=== PATIENT | female | born 1985 | race Caucasian/White ===

== ENCOUNTER 2017-08-18 06:04 | Inpatient (IN) | payer BC ==
[~2017-08-18 06:04] MED LIST: Buffered Lidocaine 0.9% SYRIN* 5 ML/SYR SYRINGE INTRADERM ONE; Sodium Citrate/Citric Acid* 15 ML UDC PO ONE
[2017-08-18] MEDS ORDERED: ceFAZolin 2 GM PREMIX (*) 2 GM/50 ML BAG IVPB ONE (06:37)
[2017-08-18] MEDS ORDERED: Morphine PF AMP (0.5MG/ML)* 5 MG/10 ML AMP ONE (07:55)
[2017-08-18] MEDS ORDERED: OXYTOCIN* 10 UNITS/ML 1 ML VIAL ONE (08:16)
[2017-08-18] MEDS ORDERED: oxyCODONE/Acetamin 5/325 MG* TAB PO PRN (08:36)
[2017-08-18] MEDS ORDERED: Naloxone* 0.4 MG/ML 1 ML VIAL IV PRN (08:36)
[2017-08-18] MEDS ORDERED: Ondansetron INJ* 2 MG/ML VIAL IV PRN (08:36)
[2017-08-18] MEDS ORDERED: DiMENhydriNATE IV* 50 MG/ML VIAL IV PUSH PRN (08:36)
[2017-08-18] MEDS ORDERED: Ketorolac INJ* 30 MG/ML 1 ML VIAL IV PRN (08:36)
[2017-08-18] MEDS ORDERED: fentaNYL* 50 MCG/ML 2 ML VIAL (100 MCG VIAL) IV PRN (08:38)
[2017-08-18] MEDS ORDERED: Acetaminophen TAB* 325 MG PO PRN (09:12)
[2017-08-18] MEDS ORDERED: Zolpidem TAB* 5 MG PO PRN (09:12)
[2017-08-18] MEDS ORDERED: Witch Hazel PAD* JAR TOPICAL PRN (09:12)
[2017-08-18] MEDS ORDERED: Dibucaine 1% 28.35 GM TUBE PR PRN (09:12)
[2017-08-18] MEDS ORDERED: Glycerin ADULT SUPP PR PRN (09:12)
--- NOTE | 2017-08-18 09:43 | OP ---
DATE OF OPERATION: 08/18/17 - ROOM #[id number] DATE OF : 87 SURGEON: Martine Russo MD UNDERGROUND REPAIRER: Crystal White CNM ANESTHESIA: Spinal. PRE-OP DIAGNOSIS: Intrauterine gestation at 39 and 2/7ths weeks, Breech presentation, failed external cephalic version. POST-OP DIAGNOSIS: Intrauterine gestation at 39 and 2/7ths weeks, Breech presentation, failed external cephalic version. OPERATIVE PROCEDURE: Primary low transverse section. EBL: 600 mL. FLUIDS: Crystalloids. DRAINS: Horn catheter. FINDINGS: Male , Apgars 9 and 9, 7 lbs 1 oz. Normal-appearing uterus, ovaries and tubes. Normal-appearing placenta. DESCRIPTION OF PROCEDURE: After informed consent was signed, the patient was taken to the operating room where she was given a spinal anesthesia that was found to be adequate. A Horn catheter was introduced into her bladder, and SCDs were placed on her legs. She was prepped and draped in the dorsal supine position with a leftward tilt. A Pfannenstiel skin incision was made with the scalpel and carried down to the underlying layer of fascia with sharp dissection of the scalpel. The fascia was incised on either side of the midline , and the fascial incision extended laterally with the Vick scissors. The inferior edge of the fascial incision was grasped with Sylvia clamps, tented up and dissected down with a combination of sharp and blunt dissection. Then the superior edge of the fascial incision was grasped with Sylvia clamps, tented up and dissected down with the combination of sharp and blunt dissection. The rectus muscles were in the midline, and the peritoneum was entered bluntly. The peritoneal incision was extended and with a combination of sharp and blunt dissection. The bladder blade was inserted and a transverse incision was made in the lower uterine segment with the scalpel. The incision was extended superiorly and inferiorly with blunt pressure. The 's buttocks were then delivered with fundal pressure, followed by the legs and the torso. Then the arms were delivered by rotating inwardly. The head was then delivered in a flexed position. The cord was milked toward the baby; and, after 30 seconds, clamped x2 and cut. The baby was handed to the trial justice. Cord blood was collected. The placenta was delivered with gentle cord traction and fundal massage. The uterus was then exteriorized and cleared of clots and debris. The uterine incision was closed with 0 Vicryl in a running locked fashion with a second layer of suture imbricating the first. The abdomen was irrigated. The uterus was placed back into the abdominal cavity. The incision was inspected and good hemostasis was noted. The peritoneum was then closed with 3-0 Chromic in a running unlocked fashion. The fascia was closed with 0 Vicryl in a running unlocked fashion. The skin was closed with 4-0 Monocryl in a running subcuticular fashion. The incision was cleaned, and Mastisol and Steri -Strips were placed. A dressing was placed. The patient was moved to the stretcher and taken to the Recovery Room in stable condition. [id number]/[id number] #: [id number] MTDD
[2017-08-18] MEDS: Nalbuphine* 20 MG/ML 1 ML VIAL IV PRN ×2 (11:59→19:37)
[2017-08-18] MEDS: Simethicone TAB* 80 MG TAB.CHEW PO SCH ×3 (12:00→21:00)
[2017-08-18] MEDS: Docusate CAP* 100 MG PO SCH ×2 (17:32→21:00)
[2017-08-19] MEDS ORDERED: oxyCODONE/Acetamin 5/325 MG* TAB PO PRN ×2
[2017-08-19] MEDS: Ibuprofen TAB* 600 MG PO PRN ×3 (06:05→22:24)
[2017-08-19 07:49] LABS: Hematocrit 31 % (35-47); Hemoglobin 10.3 g/dl (12.0-16.0); Mean Corpuscular HGB Conc 33 g/dl (31-36); Mean Corpuscular Hemoglobin 27 pg (27-31); Mean Corpuscular Volume 82 fL (80-97); Mean Platelet Volume 8 um3 (7.4-10.4); Red Blood Count 3.78 10^6/ul (4.0-5.4); Red Cell Distribution Width 16 % (10.5-15); White Blood Count 13.1 10^3/ul (3.5-10.8)
[2017-08-19] MEDS ORDERED: Ferrous Gluconate TAB* 324 MG TAB PO SCH (09:00)
[2017-08-19] MEDS ORDERED: Influenza VAC *QUAD* 2017-18* 0.5 ML SYRINGE IM ONE (09:00)
[2017-08-19] MEDS: Docusate CAP* 100 MG PO SCH ×3 (09:21→22:24)
[2017-08-19] MEDS: Simethicone TAB* 80 MG TAB.CHEW PO SCH ×4 (09:21→22:25)
[2017-08-19] MEDS ORDERED: RHO D Immune Globulin (HUMAN)* 300 MCG = 1,500 I.U. INJ IM ONE (09:55)
[2017-08-20] MEDS: Ibuprofen TAB* 600 MG PO PRN ×4 (05:13→23:33)
[2017-08-20] MEDS: Docusate CAP* 100 MG PO SCH ×3 (09:15→20:16)
[2017-08-20] MEDS: Simethicone TAB* 80 MG TAB.CHEW PO SCH ×4 (09:16→20:17)
[2017-08-21] MEDS: Ibuprofen TAB* 600 MG PO PRN (06:44)
[2017-08-21] MEDS: Docusate CAP* 100 MG PO SCH (07:06)
[2017-08-21 07:18] VITALS: BP 108/69
[2017-08-21] MEDS: Simethicone TAB* 80 MG TAB.CHEW PO SCH (08:50)
== END 2017-08-21 11:26 | disposition home or self-care (01) | DRG 540 ==
LOC: MCHOB 06:04
PROVIDERS: ADMIT Obstetrics & Gynecology; ATTEND Obstetrics & Gynecology
PROC: 4A1HX4Z Monitoring of Products of Conception, Cardiac Electrical Activity, External Approach (ICD-10-PCS; 2017-08-18)
PROC: 10D00Z1 Extraction of Products of Conception, Low, Open Approach (ICD-10-PCS; principal; 2017-08-18 07:57)
DX: O32.1XX0 Maternal care for breech presentation, not applicable or unspecified (principal); Z23 Encounter for immunization; Z3A.39 39 weeks gestation of pregnancy; Z37.0 Single live birth
CPT/HCPCS: 36415; 85025; 85461; 86900; 86901; 90686; A9270-GY; J0690; J1885; J2300; J2590; J2790

== ENCOUNTER 2020-05-16 05:48 | Inpatient (IN) ==
[2020-05-16] MEDS ORDERED: ceFOXitin 2 GM IVPREMIX 2 GM/50 ML BAG IVPB ONE (07:00)
[2020-05-16 08:15] LABS: Urine Benzodiazepine Screen None Detected (None Detect); Urine Cannabinoids Screen None Detected (None Detect); Urine Opiates Screen None Detected (None Detect)
[2020-05-16] MEDS ORDERED: Morphine PF AMP (0.5MG/ML) 5 MG/10 ML AMP ONE (08:32)
[2020-05-16] MEDS ORDERED: fentaNYL 100 mcg/2 ml 50 MCG/ML VIAL ONE (08:32)
[2020-05-16] MEDS ORDERED: Sodium Citrate/Citric Acid LIQ 15 ML UDC ONE (08:35)
[2020-05-16] MEDS ORDERED: Sodium Chloride 0.9% 10 ML ONE (08:52)
[2020-05-16] MEDS ORDERED: Metoclopramide 5 MG/ML VIAL (10 mg) ONE (08:52)
[2020-05-16] MEDS ORDERED: Dexamethasone IV 4 MG/ML VIAL 1 ml VIAL ONE (08:52)
[2020-05-16] MEDS ORDERED: Ondansetron 4 mg VIAL 2 MG/ML 2 ml VIAL ONE (08:52)
[2020-05-16] MEDS ORDERED: EPHEDrine (Pressors) 50 MG/ML VIAL ONE (08:52)
[2020-05-16] MEDS ORDERED: Ondansetron 4 mg VIAL 2 MG/ML 2 ml VIAL IV PRN (09:48)
[2020-05-16] MEDS ORDERED: DiMENhydriNATE IV 50 mg/ml 1 ml VIAL IV PUSH PRN (09:48)
[2020-05-16] MEDS ORDERED: diPHENhydraMINE IV 50 MG/ML 1 ml VIAL (BENADRYL) IV PRN (09:48)
[2020-05-16] MEDS ORDERED: Naloxone 4 mg VIAL (10 ml) 2 MG in NS 0.9% 250 ml 250 ML IV PRN (09:48)
[2020-05-16] MEDS ORDERED: Naloxone 0.4 mg VIAL 0.4 mg/ml 1 ml VIAL IV PRN (09:48)
[2020-05-16] MEDS ORDERED: RHO D Immune Globulin (HUMAN) 300 MCG = 1,500 I.U. INJ IM ONE (10:34)
[2020-05-16] MEDS ORDERED: Dibucaine 1% OINT 28.35 GM TUBE PR PRN (10:34)
[2020-05-16] MEDS ORDERED: Glycerin ADULT 2.4 gm SUPP PR PRN (10:34)
[2020-05-16] MEDS ORDERED: Witch Hazel PAD JAR TOPICAL PRN (10:34)
[2020-05-16] MEDS ORDERED: Oxytocin in LR 20 UNITS/1,000 ML BAG IVPB SCH (11:00)
[2020-05-16] MEDS ORDERED: Lactated Ringers 1000 ml BAG 1,000 ML IV SCH (11:00)
[2020-05-17 06:43] LABS: ABS Basophils 0.1 10^3/ul (0-0.2); ABS Eosinophils 0.1 10^3/ul (0-0.6); ABS Lymphocytes 1.6 10^3/ul (1.0-4.8); ABS Monocytes 1.5 10^3/ul (0-0.8); ABS Neutrophils 16.6 10^3/ul (1.5-7.7); Eosinophil % 0.6 %; Hematocrit 27 % (35-47); Hemoglobin 9.2 g/dL (12.0-16.0); Lymphocyte % 8.1 %; Mean Corpuscular HGB Conc 35 g/dL (31-36); Mean Corpuscular Hemoglobin 28 pg (27-31); Mean Corpuscular Volume 80 fL (80-97); Mean Platelet Volume 7.6 fL (7.4-10.4); Nucleated Red Blood Cells % 0.1; Platelet Count 199 10^3/uL (150-450); Red Blood Count 3.34 10^6 /uL (3.70-4.87); Red Cell Distribution Width 16 % (10-15)
[2020-05-18 07:42] VITALS: BP 106/70
== END 2020-05-18 14:45 | disposition home or self-care (01) | DRG 540 ==
LOC: MCHOB 05:48
PROVIDERS: ADMIT Obstetrics & Gynecology; ATTEND Obstetrics & Gynecology